=== PATIENT | female | born 1980 | race African-American/Black ===

== ENCOUNTER 2019-01-05 10:49 | Emergency (ER) | payer OTHER ==
[~2019-01-05] VITALS: Ht 170.2 cm; Wt 71.7 kg
[2019-01-05 10:51] VITALS: BP 110/64
== END 2019-01-05 11:48 | disposition home or self-care (01) ==
LOC: ER 10:49
DX: O26.892 Other specified pregnancy related conditions, second trimester (principal); O99.322 Drug use complicating pregnancy, second trimester; F12.10 Cannabis abuse, uncomplicated; Z3A.14 14 weeks gestation of pregnancy; M54.5 Low back pain; V49.49XA Driver injured in collision with other motor vehicles in traffic accident, initial encounter; Y93.89 Activity, other specified; Y92.488 Other paved roadways as the place of occurrence of the external cause; Y99.8 Other external cause status